=== PATIENT | male | born 1975 | race Caucasian/White ===

== ENCOUNTER 2017-01-04 19:33 | Emergency (ER) | payer OTHER ==
[~2017-01-04] VITALS: Ht 177.8 cm; Wt 88.5 kg
[2017-01-04 20:00] VITALS: BP 135/94
--- NOTE | 2017-01-04 20:43 | ED HAND/WRIST INJURY COMPLAINT ---
History of Present Illness General Chief Complaint: Laceration Procedure Stated Complaint: RIGHT MIDDLE FINGER LAC Source: patient, family Exam Limitations: no limitations Vital Signs & Intake/Output Vital Signs & Intake/Output Vital Signs Date Time Temp Pulse Resp B/P Pulse O2 O2 Flow FiO2 Ox Delivery Rate 01/05 2000 98.1 71 18 135/94 97 Room Air ED Intake and Output 01/05 0000 01/04 1200 Intake Total Output Total Balance Patient 195 lb Weight Allergies Coded Allergies: No Known Allergies (01/04/17) Triage Note: RECEIVED 41 YO MALE SENT TO ED BY REFUSE LABORER AT [facility]. PT REPORTS LAC TO TIP OF RIGHT MIDDLE FINGER. NAIL SPLIT. REFUSE LABORER WANTED PT TO GO TO ED, THOUGHT NAIL MAY NEED TO COME OFF.DRESSING INTACT AND DRY Triage Nurses Notes Reviewed? yes HPI: Patient is a 41-year-old male presents for evaluation of right middle finger laceration. Patient reports that he accidentally lacerated his finger on a metal pipe. Pain is 1 out of 10, worsens with movement and palpation. Patient was seen at an urgent care clinic prior to arrival had an x-ray(patient brought report within which reports no fracture or foreign body), received a tetanus immunization. Patient was referred to the emergency Department due to the presence of a nailbed laceration. Patient is right-hand dominant. Patient denies numbness or decreased range of motion. (CARLOS BORDEN) Past History Travel History Traveled to [place] past 21 day No Medical History Any Pertinent Medical History? see below for history Neurological: NONE EENT: NONE Cardiovascular: NONE Respiratory: NONE Gastrointestinal: NONE Hepatic: NONE Renal: nephrolithiasis Musculoskeletal: NONE Psychiatric: NONE Endocrine: NONE Blood Disorders: NONE Cancer(s): NONE Surgical History Surgical History: non-contributory Psychosocial History What is your primary language Tuvaluan Tobacco Use: Current Not Daily Daily Tobacco Use Amount/Type: Cigar or Pipe use daily Family History Hx Contributory? No (CARLOS BORDEN) Review of Systems Review of Systems Constitutional: Reports: no symptoms. Musculoskeletal: Reports: see HPI. Skin: Reports: see HPI. Neurological/Psychological: Denies: numbness, paresthesia. Hematologic/Endocrine: Reports: bleeding (from wound, resolved). Immunologic/Allergic: Reports: no symptoms. (CARLOS BORDEN) Physical Exam Physical Exam General Appearance: well developed/nourished, alert, awake Head: atraumatic Eyes: Bilateral: normal appearance. Ears, Nose, Throat: hearing grossly normal Neck: normal inspection, full range of motion Cardiovascular/Respiratory: no respiratory distress Back: normal range of motion Wrist Right: normal range of motion, normal inspection Hand Left: normal inspection, normal range of motion Hand Right: 1 cm laceration to the distal fingernail right middle finger. Full range of motion of finger. Sensation and capillary refill normal. Neurologic/Tendon: normal sensation, normal motor functions, normal tendon functions Skin: warm/dry Diagram Hands Back 1) 1 cm laceration (CARLOS BORDEN) Progress Differential Diagnosis: laceration, nail bed laceration, foreign body, fracture Plan of Care: Current Medications Sig/Sherice Start time Last Medication Dose Stop Time Status Admin Lidocaine 20 ML ONCE ONE 01/04 2100 AC (Lidocaine 1%) 01/04 210101/04/2017 9:10:22 PM: Digital block performed using 1% lidocaine 4 mL after ChloraPrep to the area. Distal nail where laceration occurred was removed. No apparent nailbed laceration. Bacitracin and a clean dressing placed. (CARLOS BORDEN) Departure Departure Time of Disposition: 2110 Disposition: HOME OR SELF CARE Condition: Stable Clinical Impression Primary Impression: Laceration of fingernail Qualifiers: Encounter type: initial encounter Qualified Code: S61.319A - Laceration without foreign body of unspecified finger with damage to nail, initial encounter Referrals: SUNNY HENRY,NATHANIEL Additional Instructions: Bacitracin to the area 1-2 times a day. Change the dressing daily. Follow up with Dr. Ravi(hand specialist) if any problems with healing. Return to the ER if pus from the wound, redness spreading, increasing pain, fevers or worsening of symptoms. Departure Forms: Customer Survey General Discharge Information (CARLOS BORDEN) PA/REFUSE LABORER Co-Sign Statement Statement: ED Attending supervision documentation- [] I saw and evaluated the patient. I have also reviewed all the pertinent lab results and diagnostic results. I agree with the findings and the plan of care as documented in the PA's/REFUSE LABORER's documentation. [x] I have reviewed the ED Record and agree with the PA's/REFUSE LABORER's documentation. [] Additions or exceptions (if any) to the PAs/REFUSE LABORER's note and plan are summarized below: [] (ELIGIO MD,RALEIGH Bar)
== END 2017-01-04 21:30 ==
LOC: ERH 19:33
DX: S61.312A Laceration without foreign body of right middle finger with damage to nail, initial encounter (principal); W45.8XXA Other foreign body or object entering through skin, initial encounter; Y92.9 Unspecified place or not applicable; Y93.9 Activity, unspecified